=== PATIENT | female | born 1990 | race Two or more races ===

== ENCOUNTER 2019-03-28 09:21 | Observation (INO) | payer MEDICAID ==
[2019-03-28] MEDS ORDERED: PRENCAP PO (10:08)
== END 2019-03-28 11:15 | disposition home or self-care (01) | DRG 566 ==
LOC: LDRP 09:21
PROVIDERS: ADMIT Obstetrics & Gynecology; ATTEND Obstetrics & Gynecology
DX: O40.3XX0 Polyhydramnios, third trimester, not applicable or unspecified (principal); O26.893 Other specified pregnancy related conditions, third trimester; R11.0 Nausea; Z3A.36 36 weeks gestation of pregnancy
CPT/HCPCS: 59025; 76818; 81002; G0378

== ENCOUNTER 2019-03-30 09:13 | Observation (INO) | payer MEDICAID ==
[~2019-03-30 09:13] MED LIST: PRENCAP PO
== END 2019-03-30 16:05 | disposition home or self-care (01) | DRG 566 ==
LOC: LDRP 14:55
PROVIDERS: ADMIT Obstetrics & Gynecology; ATTEND Obstetrics & Gynecology
DX: O40.3XX0 Polyhydramnios, third trimester, not applicable or unspecified (principal); F32.9 Major depressive disorder, single episode, unspecified; O99.343 Other mental disorders complicating pregnancy, third trimester; Z87.891 Personal history of nicotine dependence; Z3A.36 36 weeks gestation of pregnancy
CPT/HCPCS: 59025; 76818; 81002; G0378

== ENCOUNTER 2019-04-19 10:18 | Inpatient (IN) | payer MEDICAID | END 2019-04-20 17:00 | disposition home or self-care (01) | LOC: LDRP 10:18 | PROC: 10E0XZZ Delivery of Products of Conception, External Approach (ICD-10-PCS; principal; ~2019-04-19) | PROC: 0KQM0ZZ Repair Perineum Muscle, Open Approach (ICD-10-PCS; ~2019-04-19) | DX: O70.1 Second degree perineal laceration during delivery (principal); O77.0 Labor and delivery complicated by meconium in amniotic fluid; Z37.0 Single live birth; Z3A.39 39 weeks gestation of pregnancy ==

== ENCOUNTER 2023-05-15 12:35 | Emergency (ER) | payer MEDICAID, OTHER ==
[~2023-05-15] VITALS: Ht 170.2 cm; Wt 81.6 kg
[2023-05-15 13:07] VITALS: BP 123/70; PULSE 73; RESP 12; TEMP 97.8; O2SAT 97
[2023-05-16 08:32] LABS: Hepatitis B Surface Antibody Positive (Negative)
[2023-05-16 08:44] LABS: Hepatitis B Surface Antigen Negative (Negative)
== END 2023-05-15 14:09 | disposition home or self-care (01) ==
LOC: ER 12:35
DX: Z77.21 Contact with and (suspected) exposure to potentially hazardous body fluids (principal); F17.210 Nicotine dependence, cigarettes, uncomplicated; B37.0 Candidal stomatitis; Z79.899 Other long term (current) drug therapy
CPT/HCPCS: 36415; 86703; 86706; 86803; 87340

== ENCOUNTER 2023-12-17 08:22 | Emergency (ER) | payer MEDICAID, OTHER ==
[~2023-12-17] VITALS: Ht 170.2 cm; Wt 94.2 kg
[2023-12-17] MEDS: KETOROLAC TROMETH 60MG/2ML VIAL IM ONE (09:26)
[2023-12-17 09:30] VITALS: BP 124/78; PULSE 89; RESP 16; TEMP 96.6; O2SAT 99
[2023-12-17] MEDS ORDERED: METH-1182 PO (09:31)
[2023-12-17] MEDS ORDERED: IBUP-1456 PO (09:31)
== END 2023-12-17 09:32 | disposition home or self-care (01) ==
LOC: ER 08:22
DX: M54.41 Lumbago with sciatica, right side (principal); E66.01 Morbid (severe) obesity due to excess calories; F17.210 Nicotine dependence, cigarettes, uncomplicated; Z68.32 Body mass index [BMI] 32.0-32.9, adult
CPT/HCPCS: 96372; 99283; J1885